=== PATIENT | female | born 1990 | race Caucasian/White ===

== ENCOUNTER 2017-11-25 16:20 | Inpatient (IN) | payer OTHER ==
[2017-11-25 20:41] LABS: ADD MAN DIFF? NO
[2017-11-25 20:44] LABS: BASOPHIL # 0.1 10^3/ul (0.0-0.1); BASOPHILS % 0.4 % (0.0-2.0); EOSINOPHILS # 0.1 10^3/ul (0.0-0.5); EOSINOPHILS % 1.1 % (0.0-7.0); HEMATOCRIT 32.2 % (37.0-47.0); HEMOGLOBIN 10.7 g/dl (12.0-16.0); LYMPHOCYTES # 1.1 10^3/ul (0.8-2.9); LYMPHOCYTES % 8.8 % (15.0-51.0); MEAN CORPUSCULAR HEMOGLOBIN 27.9 pg (29.0-33.0); MEAN CORPUSCULAR HGB CONC 33.2 g/dl (32.0-37.0); MEAN CORPUSCULAR VOLUME 83.9 fl (82.0-101.0); MEAN PLATELET VOLUME 9.3 fl (7.4-10.4); MONOCYTE # 0.7 10^3/ul (0.3-0.9); MONOCYTES % 5.4 % (0.0-11.0); NEUTROPHIL # 10.2 10^3/ul (1.6-7.5); NEUTROPHILS % 82.5 % (39.0-77.0); PLATELET COUNT 268 10^3/UL (140-415); RED BLOOD COUNT 3.84 10^6/ul (4.20-5.40); RED CELL DISTRIBUTION WIDTH 15.7 % (11.5-14.5)
[2017-11-25 20:44] LABS: WHITE BLOOD COUNT 12.3 10^3/ul (4.8-10.8)
[2017-11-25] MEDS: LACTATED RINGER'S 1,000 ML IV (20:49)
[2017-11-25 20:51] LABS: ADD UMIC YES; UR ASCORBIC ACID NEGATIVE (NEGATIVE); UR BACTERIA FEW /HPF (NONE SEEN); UR BILIRUBIN (Dip) NEGATIVE (NEGATIVE); UR BLOOD (Dip) NEGATIVE (NEGATIVE); UR CLARITY SLIGHTLY CLOUDY (CLEAR); UR COLOR YELLOW (YELLOW); UR GLUCOSE (Dip) NEGATIVE (NEGATIVE); UR KETONES (Dip) NEGATIVE (NEGATIVE); UR LEUKOCYTE ESTERASE (Dip) 2+ Leu/ul (NEGATIVE); UR MUCUS FEW /HPF (NONE SEEN); UR NITRITE (Dip) NEGATIVE (NEGATIVE); UR RBC 3 /HPF (0-5); UR SPECIFIC GRAVITY (Dip) 1.021 (1.003-1.030); UR SQUAMOUS EPITHELIAL CELL FEW /HPF (FEW); UR TOTAL PROTEIN (Dip) 1+ mg/dl (NEGATIVE); UR UROBILINOGEN (Dip) NEGATIVE (NEGATIVE); UR WBC 3 /HPF (0-5)
[2017-11-25 21:00] LABS: INR 0.92; PROTIME 12.4 Sec (11.9-14.9)
[2017-11-25 21:01] LABS: PARTIAL THROMBOPLASTIN TIME 26.8 Sec (25.0-35.0)
[2017-11-25 21:06] LABS: ALANINE AMINOTRANSFERASE 21 IU/L (13-69); ALBUMIN 3.7 g/dl (3.3-4.9); ALBUMIN/GLOBULIN RATIO 1.12; ALKALINE PHOSPHATASE 183 IU/L (42-121); ANION GAP 15 (8-16); ASPARTATE AMINO TRANSFERASE 14 IU/L (15-46); BILIRUBIN,INDIRECT 0.2 mg/dl (0-1.1); BILIRUBIN,TOTAL 0.2 mg/dl (0.2-1.3); BLOOD UREA NITROGEN 7 mg/dl (7-20); CALCIUM 9.5 mg/dl (8.4-10.2); CARBON DIOXIDE 20 mmol/L (21-31); CHLORIDE 106 mmol/L (97-110); CREATININE 0.52 mg/dl (0.44-1.00); GLUCOSE 83 mg/dl (70-220); POTASSIUM 3.8 mmol/L (3.5-5.1); SODIUM 137 mmol/L (135-144); URIC ACID 6.2 mg/dl (3.1-7.9)
[2017-11-25] MEDS ORDERED: LACTATED RINGER'S 1,000 ML IV (21:10)
[2017-11-25] MEDS ORDERED: METHYLERGONOVINE 0.2 MG INJ IM ×2 (21:30)
[2017-11-25] MEDS ORDERED: MISOPROSTOL 200 MCG TAB PR ×2 (21:30)
[2017-11-25] MEDS ORDERED: BUTORPHANOL 2 MG INJ IV (21:30)
[2017-11-25] MEDS ORDERED: CARBOPROST 250 MCG INJ IM ×2 (21:30)
[2017-11-25] MEDS ORDERED: IBUPROFEN 600 MG TAB PO (21:30)
[2017-11-25] MEDS ORDERED: LIDOCAINE 1% (MPF) 30 ML INJ INJ ×2 (21:30)
[2017-11-25] MEDS ORDERED: OXYTOCIN 30 UNITS/LR 500 ML IV ×3 (21:30)
[2017-11-25] MEDS: AMPICILLIN 2 GM/NS (PMX) 100 ML IV (21:59)
[2017-11-25 22:21] LABS: HEPATITIS B SURFACE ANTIGEN NEGATIVE (NEGATIVE)
[2017-11-25] MEDS: MAGNESIUM SULFATE 4 GM/100 ML 100 ML IVPB (23:20)
[2017-11-25] MEDS: OXYTOCIN 30 UNITS/LR 500 ML IV (23:40)
[2017-11-26] MEDS: ACETAMINOPHEN 325 MG TAB PO ×3 (00:12→22:18)
[2017-11-26] MEDS: AMPICILLIN 1 GM/NS (PMX) 50 ML IV ×6 (01:43→22:18)
[2017-11-26 07:18] LABS: MAGNESIUM 3.8 mg/dl (1.7-2.5)
[2017-11-26] MEDS: LACTATED RINGER'S 1,000 ML IV ×4 (07:38→21:21)
[2017-11-26] MEDS ORDERED: FENTAnyl 2MCG/ML-ROPIV 0.2% 100 ML (08:24)
[2017-11-26] MEDS: MAGNESIUM SULFATE 20 GM/500 ML 500 ML IV ×3 (09:21→19:15)
[2017-11-26] MEDS ORDERED: NALOXONE (0.4 MG/ML) INJ IV (13:00)
[2017-11-26 14:11] LABS: MAGNESIUM 4.2 mg/dl (1.7-2.5)
[2017-11-26 14:55] LABS: RAPID PLASMA REAGIN NONREACTIVE (NR)
[2017-11-26 19:11] LABS: MAGNESIUM 4.4 mg/dl (1.7-2.5)
[2017-11-26] MEDS: FENTAnyl 2MCG/ML-ROPIV 0.2% 100 ML BAG EPI (19:53)
[2017-11-26 20:43] LABS: COLLECTION PERIOD 24 hrs
[2017-11-26 21:55] LABS: CREATININE,URINE RANDOM 49.35 mg/dl (20-320)
[2017-11-26 21:58] LABS: COLLECTION PERIOD 24 hrs; CREATININE CLEARANCE 240.6 mls/min (84.0-162.0); SCRET 0.52 mg/dl (0.44-1.00); VOLUME 3650 ml/24hrs
[2017-11-26 21:59] LABS: 24HR URINE TOTAL PROTEIN 620.5 mg/24hrs (42.0-225.0); VOLUME 3650 mls
[2017-11-27] MEDS: OXYTOCIN 30 UNITS/LR 500 ML IV (00:03)
[2017-11-27 00:38] LABS: MAGNESIUM 4.4 mg/dl (1.7-2.5)
[2017-11-27] MEDS: AMPICILLIN 1 GM/NS (PMX) 50 ML IV ×2 (02:14→05:30)
[2017-11-27] MEDS ORDERED: KETOROLAC 30 MG INJ (05:46)
[2017-11-27] MEDS ORDERED: LIDOCAINE 2% (SDV) 5 ML INJ (05:46)
[2017-11-27] MEDS ORDERED: OXYTOCIN 10 UNIT INJ ×2 (05:46→06:09)
[2017-11-27] MEDS ORDERED: ONDANSETRON 4 MG INJ (05:46)
[2017-11-27] MEDS ORDERED: METOCLOPRAMIDE 10 MG INJ (05:46)
[2017-11-27] MEDS ORDERED: DEXAMETHASONE 4 MG/ML 1 ML INJ (05:46)
[2017-11-27] MEDS ORDERED: PHENYLephrine (100 MCG/ML) 5ML SYG (05:46)
[2017-11-27] MEDS ORDERED: CEFAZOLIN 1 GM INJ (05:46)
[2017-11-27] MEDS ORDERED: FENTAnyl 50 MCG/ML VIAL (06:05)
[2017-11-27] MEDS ORDERED: morphine SULFATE/PF (10 MG/10 ML) INJ (06:15)
[2017-11-27] MEDS: MAGNESIUM SULFATE 20 GM/500 ML 500 ML IV ×2 (06:57→16:25)
[2017-11-27] MEDS ORDERED: DIPHENHYDRAMINE 50 MG INJ IV (07:00)
[2017-11-27] MEDS ORDERED: CARBOPROST 250 MCG INJ IM (07:00)
[2017-11-27] MEDS ORDERED: HYDROmorphONE 0.5 MG/0.5 ML SYG IV ×2 (07:00)
[2017-11-27] MEDS ORDERED: CA GLUCONATE (GM) 10% 10ML INJ IV (07:00)
[2017-11-27] MEDS ORDERED: ONDANSETRON 4 MG INJ IV (07:00)
[2017-11-27] MEDS ORDERED: CARBOPROST 250 MCG INJ (07:00)
[2017-11-27] MEDS ORDERED: CEFAZOLIN 2 GM/50 ML (PMX) 50 ML IV (07:00)
[2017-11-27] MEDS ORDERED: OXYTOCIN 30 UNITS/LR 500 ML IV (07:00)
[2017-11-27] MEDS ORDERED: OXYCODONE/ACETAMINOPHEN (5/325) TAB PO (07:00)
[2017-11-27] MEDS ORDERED: NALBUPHINE HCL (10 MG/1 ML) INJ IV (07:00)
[2017-11-27] MEDS ORDERED: NALOXONE (0.4 MG/ML) INJ IV (07:00)
[2017-11-27] MEDS ORDERED: MISOPROSTOL 200 MCG TAB PR (07:00)
[2017-11-27] MEDS ORDERED: HYDROCODONE/APAP (5/325) TAB PO (07:00)
[2017-11-27] MEDS ORDERED: ACETAMINOPHEN 500 MG TAB PO (07:00)
[2017-11-27] MEDS ORDERED: morphine 2 MG INJ IV ×2 (07:00)
[2017-11-27] MEDS: SENNA/DOCUSATE NA (8.6MG/50MG) TAB PO ×2 (09:00→21:45)
[2017-11-27 09:04] LABS: MAGNESIUM 3.7 mg/dl (1.7-2.5)
[2017-11-27] MEDS: KETOROLAC 30 MG INJ IV ×3 (10:12→21:46)
[2017-11-27] MEDS: LACTATED RINGER'S 1,000 ML IV ×2 (12:19→22:36)
[2017-11-27] MEDS: CEFAZOLIN 2 GM/50 ML (PMX) 50 ML IV ×2 (14:00→21:46)
[2017-11-27] MEDS: CEFAZOLIN 2 GM/50 ML (PMX) 50 ML IVPB (15:28)
[2017-11-27 19:22] LABS: MAGNESIUM 4.4 mg/dl (1.7-2.5)
[2017-11-28 01:50] LABS: MAGNESIUM 4.2 mg/dl (1.7-2.5)
[2017-11-28] MEDS: LACTATED RINGER'S 1,000 ML IV ×2 (02:18→06:36)
[2017-11-28] MEDS: MAGNESIUM SULFATE 20 GM/500 ML 500 ML IV ×3 (02:19→12:11)
[2017-11-28] MEDS: CEFAZOLIN 2 GM/50 ML (PMX) 50 ML IV (05:31)
[2017-11-28] MEDS: KETOROLAC 30 MG INJ IV (05:32)
[2017-11-28] MEDS: IBUPROFEN 600 MG TAB PO ×3 (06:00→16:52)
[2017-11-28 08:32] LABS: ADD MAN DIFF? NO
[2017-11-28 08:43] LABS: BASOPHILS % 0.3 % (0.0-2.0); EOSINOPHILS # 0.1 10^3/ul (0.0-0.5); EOSINOPHILS % 1.3 % (0.0-7.0); HEMATOCRIT 27.1 % (37.0-47.0); HEMOGLOBIN 8.8 g/dl (12.0-16.0); LYMPHOCYTES # 1.4 10^3/ul (0.8-2.9); LYMPHOCYTES % 12.5 % (15.0-51.0); MEAN CORPUSCULAR HEMOGLOBIN 28.1 pg (29.0-33.0); MEAN CORPUSCULAR HGB CONC 32.5 g/dl (32.0-37.0); MEAN CORPUSCULAR VOLUME 86.6 fl (82.0-101.0); MEAN PLATELET VOLUME 9.4 fl (7.4-10.4); MONOCYTE # 0.9 10^3/ul (0.3-0.9); MONOCYTES % 7.9 % (0.0-11.0); NEUTROPHIL # 8.6 10^3/ul (1.6-7.5); NEUTROPHILS % 76.9 % (39.0-77.0); PLATELET COUNT 269 10^3/UL (140-415); RED BLOOD COUNT 3.13 10^6/ul (4.20-5.40); RED CELL DISTRIBUTION WIDTH 15.6 % (11.5-14.5)
[2017-11-28 08:43] LABS: WHITE BLOOD COUNT 11.2 10^3/ul (4.8-10.8)
[2017-11-28] MEDS: OXYCODONE/ACETAMINOPHEN (5/325) TAB PO ×2 (08:49→17:51)
[2017-11-28] MEDS: SENNA/DOCUSATE NA (8.6MG/50MG) TAB PO ×2 (09:00→20:45)
[2017-11-28] MEDS: INFLUENZA VIRUS VACCINE 0.5 ML (DISPENSING) IM* (09:00)
[2017-11-28] MEDS: IBUPROFEN 800 MG TAB PO ×3 (12:09→23:39)
[2017-11-29] MEDS: IBUPROFEN 800 MG TAB PO ×4 (05:55→23:32)
[2017-11-29] MEDS: IBUPROFEN 600 MG TAB PO ×4 (06:00→18:00)
[2017-11-29] MEDS: SENNA/DOCUSATE NA (8.6MG/50MG) TAB PO ×2 (08:07→21:41)
[2017-11-29] MEDS: OXYCODONE/ACETAMINOPHEN (5/325) TAB PO ×4 (08:07→23:32)
[2017-11-30] MEDS: IBUPROFEN 600 MG TAB PO ×3 (06:00→12:00)
[2017-11-30] MEDS: IBUPROFEN 800 MG TAB PO ×2 (06:33→11:58)
[2017-11-30] MEDS: LANOLIN 7 GM TUBE TOP (08:34)
[2017-11-30] MEDS: SENNA/DOCUSATE NA (8.6MG/50MG) TAB PO (08:34)
[2017-11-30] MEDS: OXYCODONE/ACETAMINOPHEN (5/325) TAB PO (09:05)
[2017-11-30] MEDS: DIPHTH/TET/ACEL PERTUSS (ADULT) 0.5 ML VIAL IM* (15:09)
== END 2017-11-30 16:20 | disposition home or self-care (01) | DRG 775 ==
LOC: OBT 16:20 → L-D 11-27 05:26 → PP1 11-27 11:18 → OBT 21:00 → L-D 21:00
PROC: 10E0XZZ Delivery of Products of Conception, External Approach (ICD-10-PCS; principal; 2017-11-27 05:30)
PROC: 3E033VJ Introduction of Other Hormone into Peripheral Vein, Percutaneous Approach (ICD-10-PCS; 2017-11-27 05:30)
DX: O14.14 Severe pre-eclampsia complicating childbirth (principal); Z68.41 Body mass index [BMI] 40.0-44.9, adult; O99.214 Obesity complicating childbirth; E66.01 Morbid (severe) obesity due to excess calories; O62.0 Primary inadequate contractions; Z3A.37 37 weeks gestation of pregnancy; Z37.0 Single live birth
CPT/HCPCS: 36415; 62319; 76815; 76818; 80053; 81001; 82575; 83735; 84156; 84560; 85025; 85610; 85730; 86592; 86850; 86900; 86901; 87340; 90686; 90715; 96360; 99464